=== PATIENT | female | born 1955 | race Caucasian/White ===

== ENCOUNTER → 2023-03-31 | Outpatient (CLI) | payer BC ==
[~2023-03-31] VITALS: Ht 172.7 cm; Wt 79.4 kg
[~2023-03-31] MED LIST: ADENOSINE 67 MG in GIVE UN-DILUTED 0 ML IV ONE
== END | disposition home or self-care (01) ==
LOC: XYW 08:06
PROVIDERS: ATTEND Internal Medicine
DX: I10 Essential (primary) hypertension (principal); E87.6 Hypokalemia
CPT/HCPCS: 78452; 93017; A9500; J0153

== ENCOUNTER 2024-08-20 09:47 | Day surgery (SDC) | payer BC ==
[~2024-08-20] VITALS: Ht 172.7 cm; Wt 86.2 kg
[~2024-08-20 09:47] MED LIST changes: -ADENOSINE 67 MG in GIVE UN-DILUTED 0 ML IV ONE; +ALBUAER3 IN; +ARIP2TAB48 PO; +DULO60CA41 PO; +HYDR-4798 PO; +IBUP200C14 PO; +LOSA-535 PO; +MAGN250T3 PO; +METH-1181 PO; +METO-159 PO; +PRAV20TA3 PO; +TOPI25TA84 PO; +ZOLP10TA6 PO
[2024-08-20] MEDS ORDERED: PROPOFOL 10 MG/ML 20 ML IV ONE (10:33)
[2024-08-20] MEDS ORDERED: fentaNYL CITRATE 100 MCG/2 ML VL ONE (10:33)
[2024-08-20] MEDS ORDERED: ROPIVACAINE 0.5% (5MG/ML) 20ML AMPULE IJ ONE ×2 (10:50→11:26)
--- NOTE | 2024-08-20 10:50 | DVH ---
CLINICAL INDICATION: Pain TECHNIQUE: XY R ELBOW 2V XRAY Comparison: None FINDINGS/IMPRESSION: : Small joint effusion. 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
[2024-08-20] MEDS: ceFAZolin 2 GM/D5W100ml 100 ML IV ONE (11:40)
[2024-08-20] MEDS ORDERED: MEPERIDINE HCL (25 MG/ML) 1ML VIAL ONE (12:06)
[2024-08-20] MEDS ORDERED: ONDANSETRON HCL 4 MG/2 ML VIAL ONE (12:31)
[2024-08-20] MEDS ORDERED: DexAMETHasone SOD PHOS 10MG/1ML VIAL INJ ONE (12:31)
[2024-08-20] MEDS ORDERED: ePHEDrine SULFATE 50 MG/ML AMP ONE (12:44)
--- NOTE | 2024-08-20 13:38 | DVHOP2 ---
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 These include but are not limited to complications of anesthesia, postoperative infection, incomplete relief of symptoms, recurrence of symptoms, damage to bloo d vessels, nerves and tendons, deep venous thrombosis, pulmonary embolism and possible need for repeat surgery in the future. Complications: None Estimated Blood Loss: None Fluids: See anesthesia record Findings: Radial neck nonunion confirmed Indications for Surgery: Radial neck nonunion with pain and functional impairment despite adequate time for healing Name of Procedure Performed Takedown nonunion right radial neck with open reduction internal fixation and synthetic bone graft placement Procedure Details Procedure Details: Patient was brought to the operating room and placed on the table supine position. Preop patient received IV Ancef. She was given general anesthetic. Legal Service Specialist x-rays were obtained with C-arm to verify adequate positioning and visualization. Surgical time-out performed verifying patient, laterality, and procedure. Right upper extremity had a tourniquet applied. Right upper extremity was prepped and draped in sterile fashion. Extremity was elevated, exsanguinated with Esmarch, and tourniquet inflated to 250 mm Hg. A longitudinal incision was made in line with the distal humerus and centered over the lateral epicondyle and radial head and then carried down the forearm. Subcutaneous dissection hemostasis performed with Bovie identified the fascia of the ER Cl which was incised and elevated I identified the capsule which was incised and then I extended the incision along the radial neck muscle was elevated with christine elevator I used a rongeur and joker Jackson to identify the nonunion site which was confirmed with placement of the Jackson as well as use of the C-arm. I used rongeur and curette to create a bleeding bone bed then I injected the [employer] synthetic bone graft. I checked a couple of different sizes for the radial neck plate from [employer] and I chose the longer lesser curvature plate though I did have to try to bend the plate and I was able to improve the curvature somewhat but not enough to get the entire plate totally on bone as it was just too difficult to bend the plate with the instruments available in the kit. I pinned it distally with all of pins and adjusted position based on C-arm fluoroscopy. I applied the plate in the safe zone. I then drilled through the oval hole measured with depth gauge and applied a 2.3 cortical screw with good bite achieved I placed a 2nd cortical screw more distally in similar fashion. I then removed one pinning of the time at the distal plate and used the screw and guide drilled measured for length and applied two locking 2.3 screws at the radial head. I then placed an additional locking screw distally again screwing it into the available hole drilling measuring depth off of the drill bit and applying the locking screw in the distal plate. I obtained multiple x-rays with C-arm fluoroscopy to confirm maintenance of reduction as well as hardware placement. I irrigated the wound copiously with normal saline bulb syringe. The deep fascia and capsular tissue was closed with 0 Vicryl. Subcutaneous tissue closed with 2-0 Vicryl. Skin closed with a running subcuticular 3-0 Monocryl Stratafix. The wound was then dressed sterilely. Sling was provided. Tourniquet released at time of closure. Patient tolerated the procedure well was brought to recovery room in stable condition. Condition Stable Disposition Home JIAN ADAME MD Aug 20, 2024 13:38
[2024-08-20 13:44] VITALS: TEMP 97.8; O2SAT 96
[2024-08-20] MEDS ORDERED: ACETAMINOPHEN IV 1000 MG/100ML (10MG/ML) IV PRN (14:00)
[2024-08-20] MEDS ORDERED: ONDANSETRON HCL 4 MG/2 ML VIAL IV ONE (14:00)
[2024-08-20] MEDS ORDERED: MEPERIDINE HCL (25 MG/ML) 1ML VIAL IV PRN (14:00)
--- NOTE | 2024-08-20 14:04 | DVH ---
FLUOROSCOPY TIME: 68 seconds TECHNIQUE: Intraoperative radiographs of the right elbow were obtained. COMPARISON: None FINDINGS: Refer to intraoperative report for further evaluation. IMPRESSION: Refer to intraoperative report for further evaluation.
[2024-08-20] MEDS: HYDROmorphone HCL 2 MG/ML VL/or syr IV PRN (14:25)
[2024-08-20 14:59] VITALS: BP 128/60; PULSE 75; RESP 11; O2SAT 94
== END 2024-08-20 15:36 | disposition home or self-care (01) ==
LOC: SUR 09:47
PROVIDERS: ATTEND Orthopaedic Surgery
DX: S52.131K Displaced fracture of neck of right radius, subsequent encounter for closed fracture with nonunion (principal); M25.521 Pain in right elbow; M25.421 Effusion, right elbow; I10 Essential (primary) hypertension; E78.5 Hyperlipidemia, unspecified; Z90.49 Acquired absence of other specified parts of digestive tract; Z90.710 Acquired absence of both cervix and uterus; Z79.899 Other long term (current) drug therapy; X58.XXXD Exposure to other specified factors, subsequent encounter
CPT/HCPCS: 25405; 73070; C1713; J1100; J1171; J2175; J2405; J2704; J2795; J3010; 76000